=== PATIENT | male | born 1970 | race African-American/Black ===

== ENCOUNTER → 2018-07-29 | Outpatient (CLI) | payer OTHER ==
--- NOTE | 2018-07-31 09:06 | US ---
EXAMINATION TYPE: US kidneys/renal and bladder DATE OF EXAM: 07/29/2018 COMPARISON: NONE CLINICAL HISTORY: 48-year-old male N29.9 Known renal disease. Elevated creatinine. TECHNIQUE: Multiple sonographic images of the kidneys and bladder are obtained. FINDINGS: EXAM MEASUREMENTS: Right Kidney: 12.8 x 4.3 x 5.0 cm Left Kidney: 11.9 x 5.6 x 5.4 cm No hydronephrosis on either side. Right Kidney: cortical cyst upper/medial measures 1.5 x 1.3 x 1.7 cm Left Kidney: tiny exophytic cyst measures 0.6 x 0.6 x 0.6 cm. Bladder: wnl Bilateral Jets seen: not seen in 3 minutes of scan time Incidental note is made of prominent prostate measuring 4.4 cm wide. IMPRESSION: 1. Neither ureteral jet is visualized. This may reflect acute kidney injury. 2. No hydronephrosis.
== END | disposition home or self-care (01) ==
LOC: RADUSWWP 16:08
PROVIDERS: ATTEND Family Medicine
DX: N18.2 Chronic kidney disease, stage 2 (mild) (principal)
CPT/HCPCS: 76770

== ENCOUNTER 2021-03-03 21:43 | Emergency (ER) | payer OTHER ==
[2021-03-03] MEDS ORDERED: SODIUM CHLORIDE 0.9% 1,000 ML IV STA ×2 (23:53)
[2021-03-03] MEDS ORDERED: KETOROLAC 15 MG/ML 1 ML VIAL IVP STA (23:53)
[2021-03-03] MEDS ORDERED: ALBUTEROL HFA INHALER INHALATION STA (23:53)
[2021-03-03] MEDS ORDERED: SODIUM CHLORIDE 0.9% 500 ML 500 ML IV STA (23:53)
[2021-03-03] MEDS ORDERED: DEXAMETHASONE SOD PHOSPHATE 10 MG/ML 1 ML VIAL IV STA (23:53)
[2021-03-03] MEDS ORDERED: ACETAMINOPHEN TAB 500 MG TAB PO STA (23:53)
--- NOTE | 2021-03-03 23:55 | ED ---
Fever HPI - General Chief Complaint: Fever Stated Complaint: Covid+, PAUL Time Seen by Provider: 03/03/21 23:47 Source: patient, RN notes reviewed, old records reviewed Mode of arrival: ambulatory Limitations: no limitations - History of Present Illness Initial Comments: This is a 50-year-old male DF for evaluation patient does have some asthma coming in for shortness of breath severe. No fever with no nausea vomiting or diarrhea. Patient is having trouble catching his breath especially with activity. Patient does have positive coronavirus exposure with sick contacts -: hour(s) Temperature Source: subjective Context: sick contacts Associated Symptoms: chills, cough, chest pain, shortness of breath Treatments Prior to Arrival: none - Related Data Allergies Allergy/AdvReac Type Severity Reaction Status Date / Time No Known Allergies Allergy Verified 03/03/21 22:35 Review of Systems ROS Statement: Those systems with pertinent positive or pertinent negative responses have been documented in the HPI. ROS Other: All systems not noted in ROS Statement are negative. Past Medical History Past Medical History: Hypertension History of Any Multi-Drug Resistant Organisms: None Reported Past Surgical History: No Surgical Hx Reported Past Psychological History: No Psychological Hx Reported Smoking Status: Never smoker Past Alcohol Use History: None Reported Past Drug Use History: None Reported General Exam Limitations: no limitations General appearance: alert, in no apparent distress Head exam: Present: atraumatic, normocephalic, normal inspection Eye exam: Present: normal appearance, PERRL, EOMI. Absent: scleral icterus, conjunctival injection, periorbital swelling ENT exam: Present: normal exam, mucous membranes moist Neck exam: Present: normal inspection. Absent: tenderness, meningismus, lymphadenopathy Respiratory exam: Present: wheezes, accessory muscle use, decreased breath sounds, prolonged expiratory. Absent: respiratory distress, rales, rhonchi, stridor Cardiovascular Exam: Present: regular rate, normal rhythm, normal heart sounds. Absent: systolic murmur, diastolic murmur, rubs, gallop, clicks GI/Abdominal exam: Present: soft, normal bowel sounds. Absent: distended, tenderness, guarding, rebound, rigid Extremities exam: Present: normal inspection, full ROM, normal capillary refill. Absent: tenderness, pedal edema, joint swelling, calf tenderness Back exam: Present: normal inspection Neurological exam: Present: alert, oriented X3, CN II-XII intact Psychiatric exam: Present: normal affect, normal mood Skin exam: Present: warm, dry, intact, normal color. Absent: rash Course Vital Signs 03/03/21 03/04/21 03/04/21 22:36 05:21 07:44 Temperature 100.3 F H 99.2 F Pulse Rate 77 59 L 71 Respiratory 18 20 18 Rate Blood Pressure 132/86 126/81 112/65 O2 Sat by Pulse 95 96 92 L Oximetry - Reevaluation(s) Reevaluation #1: Medical record is reviewed Patient symptoms are significantly improved Patient informed results and questions have been answered Medical Decision Making - Medical Decision Making 13 male with known coronavirus. Patient feels good for discharge home, patient can be discharged home with coronavirus instructions return of pulse ox diminishes - Lab Data Result diagrams: 03/04/21 05:19 03/04/21 05:19 Lab Results 03/04/21 03/04/21 03/04/21 Range/Units 05:19 05:19 05:19 WBC 7.4 (3.8-10.6) k/uL RBC 6.09 H (4.30-5.90) m/uL Hgb 17.1 (13.0-17.5) gm/dL Hct 49.5 (39.0-53.0) % MCV 81.2 (80.0-100.0) fL MCH 28.1 (25.0-35.0) pg MCHC 34.6 (31.0-37.0) g/dL RDW 13.3 (11.5-15.5) % Plt Count 323 (150-450) k/uL MPV 6.5 Neutrophils % 78 % Lymphocytes % 15 % Monocytes % 4 % Eosinophils % 1 % Basophils % 1 % Neutrophils # 5.8 (1.3-7.7) k/uL Lymphocytes # 1.1 (1.0-4.8) k/uL Monocytes # 0.3 (0-1.0) k/uL Eosinophils # 0.1 (0-0.7) k/uL Basophils # 0.1 (0-0.2) k/uL PT 10.8 (9.0-12.0) sec INR 1.0 (<1.2) APTT 22.5 (22.0-30.0) sec Sodium 134 L (137-145) mmol/L Potassium 3.6 (3.5-5.1) mmol/L Chloride 91 L (98-107) mmol/L Carbon Dioxide 32 H (22-30) mmol/L Anion Gap 11 mmol/L BUN 29 H (9-20) mg/dL Creatinine 1.38 H (0.66-1.25) mg/dL Est GFR (CKD-EPI)AfAm 69 (>60 ml/min/1.73 sqM) Est GFR (CKD-EPI)NonAf 59 (>60 ml/min/1.73 sqM) Glucose 96 (74-99) mg/dL Plasma Lactic Acid Weston (0.7-2.0) mmol/L Calcium 9.1 (8.4-10.2) mg/dL Magnesium 2.3 (1.6-2.3) mg/dL Total Bilirubin 0.7 (0.2-1.3) mg/dL AST 47 (17-59) U/L ALT 21 (4-49) U/L Alkaline Phosphatase 61 (38-126) U/L Lactate Dehydrogenase 753 H (313-618) U/L C-Reactive Protein 41.7 H (<10.0) mg/L Total Protein 8.0 (6.3-8.2) g/dL Albumin 4.3 (3.5-5.0) g/dL 03/04/21 Range/Units 05:19 WBC (3.8-10.6) k/uL RBC (4.30-5.90) m/uL Hgb (13.0-17.5) gm/dL Hct (39.0-53.0) % MCV (80.0-100.0) fL MCH (25.0-35.0) pg MCHC (31.0-37.0) g/dL RDW (11.5-15.5) % Plt Count (150-450) k/uL MPV Neutrophils % % Lymphocytes % % Monocytes % % Eosinophils % % Basophils % % Neutrophils # (1.3-7.7) k/uL Lymphocytes # (1.0-4.8) k/uL Monocytes # (0-1.0) k/uL Eosinophils # (0-0.7) k/uL Basophils # (0-0.2) k/uL PT (9.0-12.0) sec INR (<1.2) APTT (22.0-30.0) sec Sodium (137-145) mmol/L Potassium (3.5-5.1) mmol/L Chloride (98-107) mmol/L Carbon Dioxide (22-30) mmol/L Anion Gap mmol/L BUN (9-20) mg/dL Creatinine (0.66-1.25) mg/dL Est GFR (CKD-EPI)AfAm (>60 ml/min/1.73 sqM) Est GFR (CKD-EPI)NonAf (>60 ml/min/1.73 sqM) Glucose (74-99) mg/dL Plasma Lactic Acid Weston 1.8 (0.7-2.0) mmol/L Calcium (8.4-10.2) mg/dL Magnesium (1.6-2.3) mg/dL Total Bilirubin (0.2-1.3) mg/dL AST (17-59) U/L ALT (4-49) U/L Alkaline Phosphatase (38-126) U/L Lactate Dehydrogenase (313-618) U/L C-Reactive Protein (<10.0) mg/L Total Protein (6.3-8.2) g/dL Albumin (3.5-5.0) g/dL - EKG Data -: EKG Interpreted by Me (EKG is sinus rhythm 71 SD 184 QRS 86 QTc 410) - Radiology Data Radiology results: report reviewed (Chest x-ray shows bilateral pneumonia), im age reviewed Disposition Clinical Impression: Coronavirus infection, Pneumonia due to COVID-19 virus Disposition: HOME SELF-CARE Condition: Good Instructions (If sedation given, give patient instructions): Coronavirus Disease 2019 (COVID-19), Fever in Adults (ED) Is patient prescribed a controlled substance at d/c from ED?: No Referrals: Rojas Allen MD [Primary Care Provider] - 1-2 days
--- NOTE | 2021-03-04 00:40 | XR ---
EXAM: XR Chest, 1 View CLINICAL HISTORY: ITS. REASON XR Reason: Suspected COVID-19 pneumonia TECHNIQUE: Frontal view of the chest. COMPARISON: No relevant prior studies available. FINDINGS: Lungs: Patchy bilateral airspace infiltrates. Suspect multilobar pneumonia, with particular concern for coronavirus infection. Pleural space: Unremarkable. No pneumothorax. Heart: Unremarkable. No cardiomegaly. Mediastinum: Unremarkable. Bones/joints: Mild degenerative changes. IMPRESSION: Patchy bilateral airspace infiltrates. Suspect multilobar pneumonia, with particular concern for coronavirus infection.
[2021-03-04 05:38] LABS: Basophils # (A) 0.1 k/uL (0-0.2); Basophils % (A) 1 %; Eosinophils # (A) 0.1 k/uL (0-0.7); Eosinophils % (A) 1 %; HCT 49.5 % (39.0-53.0); HGB 17.1 gm/dL (13.0-17.5); Lymphocytes # (A) 1.1 k/uL (1.0-4.8); Lymphocytes % (A) 15 %; MCH 28.1 pg (25.0-35.0); MCHC 34.6 g/dL (31.0-37.0); MCV 81.2 fL (80.0-100.0); Mean Platelet Volume 6.5; Monocytes # (A) 0.3 k/uL (0-1.0); Monocytes % (A) 4 %; Neutrophils # (A) 5.8 k/uL (1.3-7.7); Neutrophils % (A) 78 %; Platelet Count 323 k/uL (150-450); RBC 6.09 m/uL (4.30-5.90); RDW 13.3 % (11.5-15.5); WBC 7.4 k/uL (3.8-10.6)
[2021-03-04 05:48] LABS: Albumin 4.3 g/dL (3.5-5.0); C Reactive Protein 41.7 mg/L (<10.0); Calcium 9.1 mg/dL (8.4-10.2); Magnesium 2.3 mg/dL (1.6-2.3); Potassium 3.6 mmol/L (3.5-5.1); Total Bilirubin 0.7 mg/dL (0.2-1.3)
[2021-03-04 06:15] LABS: Partial Thromboplastin Time 22.5 sec (22.0-30.0); Prothrombin Time 10.8 sec (9.0-12.0)
[2021-03-04 07:50] VITALS: BP 112/65; PULSE 71; RESP 18; TEMP 99.2
== END 2021-03-04 08:01 | disposition home or self-care (01) ==
LOC: EC 21:43
DX: J12.82 Pneumonia due to coronavirus disease 2019 (principal); I10 Essential (primary) hypertension
CPT/HCPCS: 36415; 71045; 80053; 83605; 83615; 83735; 85025; 85610; 85730; 86140; 93005; 94640; 99285

== ENCOUNTER 2021-03-06 18:49 | Inpatient (IN) | payer OTHER ==
[2021-03-06 19:31] LABS: Basophils # (A) 0.1 k/uL (0-0.2); Basophils % (A) 1 %; Eosinophils # (A) 0.1 k/uL (0-0.7); Eosinophils % (A) 2 %; HCT 47.2 % (39.0-53.0); HGB 16.2 gm/dL (13.0-17.5); Lymphocytes # (A) 0.7 k/uL (1.0-4.8); Lymphocytes % (A) 14 %; MCH 27.6 pg (25.0-35.0); MCHC 34.2 g/dL (31.0-37.0); MCV 80.7 fL (80.0-100.0); Mean Platelet Volume 6.8; Monocytes # (A) 0.3 k/uL (0-1.0); Monocytes % (A) 5 %; Neutrophils # (A) 3.7 k/uL (1.3-7.7); Neutrophils % (A) 77 %; Platelet Count 386 k/uL (150-450); RBC 5.85 m/uL (4.30-5.90); RDW 13.4 % (11.5-15.5); WBC 4.8 k/uL (3.8-10.6)
[2021-03-06 19:44] LABS: D-Dimer 0.39 mg/L FEU (<0.60); Partial Thromboplastin Time 26.3 sec (22.0-30.0); Prothrombin Time 10.4 sec (9.0-12.0)
[2021-03-06 19:50] LABS: Albumin 4.2 g/dL (3.5-5.0); C Reactive Protein 83.8 mg/L (<10.0); Calcium 8.8 mg/dL (8.4-10.2); Magnesium 2.6 mg/dL (1.6-2.3); Potassium 3.8 mmol/L (3.5-5.1); Total Bilirubin 0.9 mg/dL (0.2-1.3); Total Protein 7.9 g/dL (6.3-8.2)
--- NOTE | 2021-03-06 20:10 | XR ---
EXAMINATION TYPE: XR chest 1V portable DATE OF EXAM: 03/06/2021 COMPARISON: 03/04/2021. HISTORY: Cough and shortness of breath. TECHNIQUE: Single frontal view of the chest is obtained. FINDINGS: There is increased moderate opacities in the right midlung and left lung base. No pleural effusion, or pneumothorax seen. The cardiac silhouette size is within normal limits. The osseous s tructures are intact. IMPRESSION: Worsening bilateral infiltrates.
--- NOTE | 2021-03-06 20:52 | ED ---
SOB HPI - General Chief Complaint: Shortness of Breath Stated Complaint: low o2/cough/sob Time Seen by Provider: 03/06/21 18:55 Source: patient, family Mode of arrival: wheelchair - History of Present Illness Initial Comments: Patient is a 50-year-old male with past history of hypertension presents emergency room with reported shortness of breath. Patient was seen in the [facility] en[facility] room 2 days ago for similar complaint. He was diagnosed with Coban. He did not receive any treatment was discharged home. States that over the past 2 days he has had worsening shortness of breath and cough. Denies any fevers. No history of previous cardiac or lung disease. Patient does arrive hypoxic saturating 85% on room air. He denies chest pain. No history of DVT or PE. No other alleviating, precipitating or modifying factors - Related Data Home Medications Medication Instructions Recorded Confirmed Budesonide/Formoterol Fumarate 2 puff INHALATION RT-BID 03/06/21 03/06/21 [Symbicort 160-4.5 Mcg Inhaler] amLODIPine [Norvasc] 5 mg PO DAILY 03/06/21 03/06/21 atenoloL [Atenolol] 25 mg PO DAILY 03/06/21 03/06/21 hydroCHLOROthiazide 50 mg PO DAILY 03/06/21 03/06/21 methylPREDNISolone Dose Pack See Taper PO DIRECTED 03/06/21 03/06/21 [Medrol Dose Pack] Allergies Allergy/AdvReac Type Severity Reaction Status Date / Time No Known Allergies Allergy Verified 03/06/21 21:26 Review of Systems ROS Statement: Those systems with pertinent positive or pertinent negative responses have been documented in the HPI. ROS Other: All systems not noted in ROS Statement are negative. Past Medical History Past Medical History: Hypertension History of Any Multi-Drug Resistant Organisms: None Reported Past Surgical History: No Surgical Hx Reported Past Psychological History: No Psychological Hx Reported Smoking Status: Never smoker Past Alcohol Use History: None Reported Past Drug Use History: None Reported - Past Family History Father Family Medical History: Renal Disease Mother Family Medical History: CVA/TIA, Diabetes Mellitus Additional Family Medical History / Comment(s): CVAs General Exam General appearance: alert, in no apparent distress Head exam: Present: atraumatic, normocephalic, normal inspection Eye exam: Present: normal appearance, PERRL, EOMI. Absent: scleral icterus, conjunctival injection, periorbital swelling ENT exam: Present: normal exam, mucous membranes moist Neck exam: Present: normal inspection. Absent: tenderness, meningismus, lymphadenopathy Respiratory exam: Present: normal lung sounds bilaterally. Absent: respiratory distress, wheezes, rales, rhonchi, stridor Cardiovascular Exam: Present: regular rate, normal rhythm, normal heart sounds. Absent: systolic murmur, diastolic murmur, rubs, gallop, clicks GI/Abdominal exam: Present: soft, normal bowel sounds. Absent: distended, tenderness, guarding, rebound, rigid Extremities exam: Present: normal inspection, full ROM, normal capillary refill. Absent: tenderness, pedal edema, joint swelling, calf tenderness Back exam: Present: normal inspection Neurological exam: Present: alert, oriented X3, CN II-XII intact Psychiatric exam: Present: normal affect, normal mood Skin exam: Present: warm, dry, intact, normal color. Absent: rash Course Vital Signs 03/06/21 03/06/21 03/06/21 18:52 19:26 20:24 Temperature 99.2 F Pulse Rate 83 78 Respiratory 24 18 18 Rate Blood Pressure 126/82 118/84 O2 Sat by Pulse 85 L 99 Oximetry 03/06/21 03/06/21 03/07/21 22:10 23:34 01:20 Temperature 100.8 F H 98.7 F Pulse Rate 79 74 Respiratory 19 18 18 Rate Blood Pressure 134/89 112/70 O2 Sat by Pulse 99 99 96 Oximetry 03/07/21 03/07/21 03/07/21 06:00 08:20 08:23 Temperature 97.5 F L 97.8 F Pulse Rate 64 70 Respiratory 18 18 Rate Blood Pressure 124/90 126/79 O2 Sat by Pulse 96 93 L Oximetry 03/07/21 11:04 Temperature 98 F Pulse Rate 68 Respiratory 18 Rate Blood Pressure 126/82 O2 Sat by Pulse 93 L Oximetry Medical Decision Making - Medical Decision Making Upon arrival patient placed in room 5. He is placed on 3 L of supplemental oxygen due to his hypoxia. Laboratory studies are conducted and a chest x-rays performed. Patient does have worsening infiltrates on chest x-ray. He continues to maintain saturations of 94% on 3 L. Because of his hypoxia did recommend admission for which patient did agree to. Discussed the case with Dr. Martinez who agreed to admit the patient. I did start him on Decadron. Patient agreed to the treatment plan and he is currently awaiting a bed on the floor - Lab Data Result diagrams: 03/07/21 04:20 03/07/21 04:20 Lab Results 03/06/21 03/06/21 03/06/21 Range/Units 19:15 19:15 19:15 WBC 4.8 (3.8-10.6) k/uL RBC 5.85 (4.30-5.90) m/uL Hgb 16.2 (13.0-17.5) gm/dL Hct 47.2 (39.0-53.0) % MCV 80.7 (80.0-100.0) fL MCH 27.6 (25.0-35.0) pg MCHC 34.2 (31.0-37.0) g/dL RDW 13.4 (11.5-15.5) % Plt Count 386 (150-450) k/uL MPV 6.8 Neutrophils % 77 % Lymphocytes % 14 % Monocytes % 5 % Eosinophils % 2 % Basophils % 1 % Neutrophils # 3.7 (1.3-7.7) k/uL Lymphocytes # 0.7 L (1.0-4.8) k/uL Monocytes # 0.3 (0-1.0) k/uL Eosinophils # 0.1 (0-0.7) k/uL Basophils # 0.1 (0-0.2) k/uL PT 10.4 (9.0-12.0) sec INR 1.0 (<1.2) APTT 26.3 (22.0-30.0) sec D-Dimer 0.39 (<0.60) mg/L FEU Sodium 134 L (137-145) mmol/L Potassium 3.8 (3.5-5.1) mmol/L Chloride 92 L (98-107) mmol/L Carbon Dioxide 30 (22-30) mmol/L Anion Gap 12 mmol/L BUN 25 H (9-20) mg/dL Creatinine 1.30 H (0.66-1.25) mg/dL Est GFR (CKD-EPI)AfAm 74 (>60 ml/min/1.73 sqM) Est GFR (CKD-EPI)NonAf 64 (>60 ml/min/1.73 sqM) Glucose 121 H (74-99) mg/dL Plasma Lactic Acid Weston (0.7-2.0) mmol/L Calcium 8.8 (8.4-10.2) mg/dL Magnesium 2.6 H (1.6-2.3) mg/dL Total Bilirubin 0.9 (0.2-1.3) mg/dL AST 55 (17-59) U/L ALT 29 (4-49) U/L Alkaline Phosphatase 67 (38-126) U/L Lactate Dehydrogenase 1041 H (313-618) U/L C-Reactive Protein 83.8 H (<10.0) mg/L Total Protein 7.9 (6.3-8.2) g/dL Albumin 4.2 (3.5-5.0) g/dL Procalcitonin (0.02-0.09) ng/mL 03/06/21 03/06/21 Range/Units 19:15 19:15 WBC (3.8-10.6) k/uL RBC (4.30-5.90) m/uL Hgb (13.0-17.5) gm/dL Hct (39.0-53.0) % MCV (80.0-100.0) fL MCH (25.0-35.0) pg MCHC (31.0-37.0) g/dL RDW (11.5-15.5) % Plt Count (150-450) k/uL MPV Neutrophils % % Lymphocytes % % Monocytes % % Eosinophils % % Basophils % % Neutrophils # (1.3-7.7) k/uL Lymphocytes # (1.0-4.8) k/uL Monocytes # (0-1.0) k/uL Eosinophils # (0-0.7) k/uL Basophils # (0-0.2) k/uL PT (9.0-12.0) sec INR (<1.2) APTT (22.0-30.0) sec D-Dimer (<0.60) mg/L FEU Sodium (137-145) mmol/L Potassium (3.5-5.1) mmol/L Chloride (98-107) mmol/L Carbon Dioxide (22-30) mmol/L Anion Gap mmol/L BUN (9-20) mg/dL Creatinine (0.66-1.25) mg/dL Est GFR (CKD-EPI)AfAm (>60 ml/min/1.73 sqM) Est GFR (CKD-EPI)NonAf (>60 ml/min/1.73 sqM) Glucose (74-99) mg/dL Plasma Lactic Acid Weston 1.6 (0.7-2.0) mmol/L Calcium (8.4-10.2) mg/dL Magnesium (1.6-2.3) mg/dL Total Bilirubin (0.2-1.3) mg/dL AST (17-59) U/L ALT (4-49) U/L Alkaline Phosphatase (38-126) U/L Lactate Dehydrogenase (313-618) U/L C-Reactive Protein (<10.0) mg/L Total Protein (6.3-8.2) g/dL Albumin (3.5-5.0) g/dL Procalcitonin 0.15 H (0.02-0.09) ng/mL - EKG Data EKG Comments: EKG demonstrates normal sinus rhythm with a ventricular rate of 78. DE interval 162. QRS 76. QTC 426. No acute ST segment elevations Disposition Clinical Impression: Coronavirus infection, Hypoxia Disposition: ADMITTED IP TO THIS HOSP Condition: Stable Is patient prescribed a controlled substance at d/c from ED?: No Decision to Admit Reason: Admit from EC Decision Date: 03/06/21 Decision Time: 20:52
[2021-03-06] MEDS ORDERED: NALOXONE 0.4 MG/ML 1 ML VIAL IV PRN (20:53)
[2021-03-06] MEDS ORDERED: ACETAMINOPHEN TAB 325 MG TAB PO PRN (20:53)
[2021-03-06] MEDS: DEXAMETHASONE SOD PHOSPHATE 10 MG/ML 1 ML VIAL IV SCH (23:32)
[2021-03-07 04:39] LABS: Basophils % (A) 0 %; Eosinophils # (A) 0.1 k/uL (0-0.7); Eosinophils % (A) 1 %; HCT 47.8 % (39.0-53.0); HGB 15.8 gm/dL (13.0-17.5); Lymphocytes # (A) 0.6 k/uL (1.0-4.8); Lymphocytes % (A) 10 %; MCHC 33.1 g/dL (31.0-37.0); MCV 81.5 fL (80.0-100.0); Mean Platelet Volume 6.7; Monocytes # (A) 0.2 k/uL (0-1.0); Monocytes % (A) 3 %; Neutrophils # (A) 5.3 k/uL (1.3-7.7); Neutrophils % (A) 85 %; Platelet Count 378 k/uL (150-450); RBC 5.86 m/uL (4.30-5.90); RDW 13.7 % (11.5-15.5); WBC 6.3 k/uL (3.8-10.6)
[2021-03-07 05:34] LABS: Calcium 8.8 mg/dL (8.4-10.2)
[2021-03-07] MEDS: DEXAMETHASONE SOD PHOSPHATE 10 MG/ML 1 ML VIAL IV SCH (08:19)
[2021-03-07] MEDS: atenoloL 25 MG TAB PO SCH (08:20)
[2021-03-07] MEDS: amLODIPine 5 MG TAB PO SCH (08:20)
[2021-03-07] MEDS: CHOLECALCIFEROL 25 MCG (1000 IU) TABLET PO SCH (10:58)
[2021-03-07] MEDS: ASCORBIC ACID 500 MG TAB PO SCH ×2 (10:58→19:48)
[2021-03-07] MEDS: ZINC SULFATE 220 MG CAP PO SCH (10:58)
[2021-03-07] MEDS: ENOXAPARIN 40 MG/0.4 ML SYRINGE SQ SCH (10:58)
[2021-03-07] MEDS: SYMBICORT 160-4.5 MCG INHALER INHALATION SCH ×2 (14:10→22:37)
[2021-03-07 14:31] VITALS: BMI 34.2
--- NOTE | 2021-03-07 14:32 | P.CNPUL ---
History of Present Illness Consult date: 03/07/21 Reason for consult: dyspnea, cough, hypoxemia, abnormal CXR/CT Chief complaint: Dyspnea, hypoxia, COVID 19 pneumonia History of present illness: 50-year-old -N[place]alese male patient with past nuchal history of hyper tension, and hypertensive nephrosclerosis and CTD stage II at baseline, lifetime nonsmoker who presented to the emergency department on 03/06/2021 with symptoms of worsening shortness of breath and coughing. His symptoms started over 10 days ago, and began with loss of taste, patient states the food was tasting funny, gradually he started coughing, and developing worsening shortness of breath. He had outpatient test for over 19 at the [facility] 8 days ago on . He was in the emergency department on 03/03/2021 complaining of trouble catching his breath especially with activity. Patient does have positive coronavirus exposure with sick contacts. Does report some chest tightness. Patient did not require supplemental oxygen at that time, his chest x-ray was showing bilateral pneumonia. Patient was cleared for discharge home where his breathing continued to worsen she returned for reevaluation. His O2 saturations are now down to 85% and patient was placed on supplemental oxygen, still has the cough, and chest tightness, his chest x-ray showed worsening bilateral infiltrates. EKG showed normal sinus rhythm with T-wave inversion in the lead 3 and aVF. Lab work showed the lymphopenia with lymphocyte count of 0.7, the rest of the CBC was within normal limits, d-dimer was 0.39, sodium was 134, potassium is 3.8, chloride is 92, BUN is 25, creatinine is 1.3, LDH is 1041, CRP is 83.8, pro calcitonin level is negative at 0.15, patient was started on Decadron, prophylactic anticoagulation form of Lovenox, and vitamins. He is outside the window for Remdesivir Review of Systems All systems: negative Constitutional: Reports malaise, Reports poor appetite, Denies chills, Denies fever Eyes: denies blurred vision, denies pain Ears, nose, mouth and throat: Denies headache, Denies sore throat Cardiovascular: Denies chest pain, Denies shortness of breath Respiratory: Reports dyspnea, Denies cough Gastrointestinal: Reports loss of appetite, Denies abdominal pain, Denies diarrhea, Denies nausea, Denies vomiting Musculoskeletal: Denies myalgias Integumentary: Denies pruritus, Denies rash Neurological: Denies numbness, Denies weakness Psychiatric: Denies anxiety, Denies depression Endocrine: Denies fatigue, Denies weight change Past Medical History Past Medical History: Hypertension, Renal Disease Additional Past Medical History / Comment(s): Pt tested covid + 03/01/21 at [facility] in [place]. History of Any Multi-Drug Resistant Organisms: None Reported Past Surgical History: No Surgical Hx Reported Past Anesthesia/Blood Transfusion Reactions: Unable to Obtain Additional Past Anesthesia/Blood Transfusion Reaction / Comment(s): Pt has never had surgery Smoking Status: Never smoker - Past Family History Father Family Medical History: Renal Disease Mother Family Medical History: CVA/TIA, Diabetes Mellitus Additional Family Medical History / Comment(s): CVAs Medications and Allergies Home Medications Medication Instructions Recorded Confirmed Type Budesonide/Formoterol Fumarate 2 puff INHALATION RT-BID 03/06/21 03/06/21 History [Symbicort 160-4.5 Mcg Inhaler] amLODIPine [Norvasc] 5 mg PO DAILY 03/06/21 03/06/21 History atenoloL [Atenolol] 25 mg PO DAILY 03/06/21 03/06/21 History hydroCHLOROthiazide 50 mg PO DAILY 03/06/21 03/06/21 History methylPREDNISolone Dose Pack See Taper PO DIRECTED 03/06/21 03/06/21 History [Medrol Dose Pack] Allergies Allergy/AdvReac Type Severity Reaction Status Date / Time No Known Allergies Allergy Verified 03/06/21 21:26 Physical Exam Vitals: Vital Signs Temp Pulse Pulse Resp BP BP Pulse Ox 03/07/21 13:48 97.8 F 66 16 111/81 90 L 03/07/21 11:04 98 F 68 18 126/82 93 L 03/07/21 08:23 97.8 F 03/07/21 08:20 70 18 126/79 93 L 03/07/21 06:00 97.5 F L 64 18 124/90 96 03/07/21 01:20 98.7 F 74 18 112/70 96 03/06/21 23:34 100.8 F H 79 18 134/89 99 03/06/21 22:10 19 99 03/06/21 20:24 78 18 118/84 99 03/06/21 19:26 18 03/06/21 18:52 99.2 F 83 24 126/82 85 L Intake and Output 03/06/21 03/07/21 03/07/21 22:59 06:59 14:59 Other: Weight 99.2 kg 99.2 kg GENERAL EXAM: Alert, very pleasant, 50-year-old -N[place]alese male, on 3 L of oxygen pulse ox of 93% omfortable in no apparent distress. HEAD: Normocephalic/atraumatic. EYES: Normal reaction of pupils, equal size. Conjunctiva pink, sclera white. NOSE: Clear with pink turbinates. THROAT: No erythema or exudates. NECK: No masses, no JVD, no thyroid enlargement, no adenopathy. CHEST: No chest wall deformity. Symmetrical expansion. LUNGS: Equal air entry with bilateral crackles CVS: Regular rate and rhythm, normal S1 and S2, no gallops, no murmurs, no rubs ABDOMEN: Soft, nontender. No hepatosplenomegaly, normal bowel sounds, no guar ding or rigidity. EXTREMITIES: No clubbing, no edema, no cyanosis, 2+ pulses and upper and lower extremities. MUSCULOSKELETAL: Muscle strength and tone normal. SPINE: No scoliosis or deformity SKIN: No rashes CENTRAL NERVOUS SYSTEM: Alert and oriented -3. No focal deficits, tone is normal in all 4 extremities. PSYCHIATRIC: Alert and oriented -3. Appropriate affect. Intact judgment and insight. Results - Laboratory Findings CBC and BMP: 03/07/21 04:20 03/07/21 04:20 PT/INR, D-dimer PT 10.4 sec (9.0-12.0) 03/06/21 19:15 INR 1.0 (<1.2) 03/06/21 19:15 D-Dimer 0.39 mg/L FEU (<0.60) 03/06/21 19:15 Abnormal lab findings: Abnormal Labs 03/06/21 03/06/21 03/06/21 19:15 19:15 19:15 Lymphocytes # 0.7 L Sodium 134 L Chloride 92 L Carbon Dioxide BUN 25 H Creatinine 1.30 H Glucose 121 H Magnesium 2.6 H Lactate Dehydrogenase 1041 H C-Reactive Protein 83.8 H Procalcitonin 0.15 H Coronavirus (PCR) 03/07/21 03/07/21 03/07/21 04:20 04:20 11:00 Lymphocytes # 0.6 L Sodium 135 L Chloride 94 L Carbon Dioxide 32 H BUN 24 H Creatinine Glucose 139 H Magnesium Lactate Dehydrogenase C-Reactive Protein Procalcitonin Coronavirus (PCR) Detected A - Diagnostic Findings Chest x-ray: report reviewed, image reviewed Assessment and Plan Plan: Assessment: #1. Acute hypoxic respiratory failure related to acute COVID 19 pneumonia with onset of symptoms over 10 days ago, outside of the window for Remdesivir #2. Dyspnea, hypoxia, cough, loss of appetite, loss of taste related to the above, #3. History of hypertension #4. Hypertensive nephrosclerosis and CKG stage II at baseline #5. Acute kidney injury related to ATN, improved with IV hydration #6. Mild hyponatremia related to poor oral intake and hypovolemia improved with IV hydration Plan: Continue standard medical treatment, with IV steroids, current dose Lovenox 40 mg daily, supportive treatment, will add vitamins, we'll continue to monitor the patient for symptoms of worsening dyspnea or hypoxia. Continue IV fluids, she is out of the side window for Remdesivir. We'll continue to follow and make further recommendations according to his clinical course I performed a history & physical examination of the patient and discussed their management with my nurse practitioner, Astrid Garcia. I reviewed the nurse practitioner's note and agree with the documented findings and plan of care. Lung sounds are positive for diminished breath sounds. The findings and the impression was discussed with the patient. I attest to the documentation by the nurse practitioner. Time with Patient: Greater than 30
--- NOTE | 2021-03-07 16:51 | HP ---
HISTORY AND PHYSICAL This is a 50-year-old white male who has been in the emergency room 2 or 3 times in the last week. He has history of hypertension, hypertensive chronic kidney disease, stage 2, nonsmoker. He came in with worsening shortness of breath and cough. He was positive for COVID. He failed outpatient treatment with Z-Fidencio, steroid pack, zinc, Symbicort, which he never picked up at the pharmacy, but apparently he was sent home and he came back with worsening breathing. He is now on 3 L of oxygen. CRP is 83. Procalcitonin is 0.15. Started on Decadron, Lovenox, vitamins. He probably needs some kind of treatment with remdesivir or Actemra. REVIEW OF SYSTEMS: Fourteen-point review of systems negative except for mentioned in HPI. Weakness, fatigue, shortness of breath. He has not lost taste or smell. PAST MEDICAL HISTORY: Hypertension, renal disease diagnosed on 03/01/2021 at [facility] in [place]. FAMILY HISTORY: Father with renal disease. Mother with CVA, TIA, diabetes mellitus. HOME MEDICINES: 1. Symbicort 160/4.5 two puffs b.i.d. 2. Norvasc 5 mg daily. 3. Atenolol 25 daily. 4. Hydrochlorothiazide 50 daily. ALLERGIES: NEGATIVE. PHYSICAL EXAMINATION: Temperature 97.8 up to 100.8, respiratory rate 16 to 18, pulse 60s to 80s, blood pressure 120s to 130s over 60s to 70s. Oxygen saturation: When he came in it was 85% and now it is 90% on 3 L. HEENT: Normocephalic, atraumatic. He looks weak, fatigued. CARDIOVASCULAR: S1, S2. LUNGS: Scattered rhonchi and wheeze. ABDOMEN: Soft, non-tender. No mass. EXTREMITIES: No cyanosis, clubbing, edema. MUSCULOSKELETAL: Range of motion fair. SKIN: No rash, excoriation, bruising. BUTT SAWYER: Cranial nerves appear to be intact. PSYCH: Fair mood and affect. ASSESSMENT: 1. COVID 19 pneumonia. 2. Acute hypoxemic respiratory failure secondary to COVID. 3. Hypertension. 4. Renal disease, stage 2. 5. Mild hyponatremia due to dehydration. IV steroids. Lovenox, zinc, vitamin C, vitamin D. Prognosis guarded. He will be here for a while. MMJORDYNL / IJN: [id number] /
--- NOTE | 2021-03-08 07:45 | CONS ---
CONSULTATION DATE OF SERVICE: 03/07/2021 REASON FOR CONSULTATION: COVID-19 infection. HISTORY OF PRESENT ILLNESS: The patient is a 50-year-old male with a past history significant for hypertension, hypertensive heart disease in this patient presenting to the ER at [facility] yesterday evening for evaluation of worsening shortness of breath or cough. Apparently the patient's symptoms have been going on from Wednesday, about 10 days ago, in this patient who did have initially loss of taste and smell and subsequently started having coughing, which has been moderate in intensity, mostly dry. Not bringing up any purulent sputum. Still having increasing shortness of breath. With these symptoms, the patient was initially seen at [facility] ER on 03/03/2021. At that point, the patient was diagnosed with COVID-19. Patient was not hypoxic at that time and patient was discharged home. The patient now presented back to the hospital with worsening shortness of breath. The patient has been complaining of a being unable to take a deep breath. The patient did have a cough which has been moderate in intensity, not bringing up any sputum. Some nausea but no vomiting. Decreased oral intake. No abdominal pain. No diarrhea. On presentation to hospital, the patient did have a low-grade fever of 100.8 degrees Fahrenheit. The patient was hypoxic with O2 sats of 85% on room air. He is currently 92% on 5 L nasal cannula. The patient did have a normal white count with lymphopenia. D-dimer was normal. Creatinine is 1.30. Liver enzymes are normal. LDH is 1041. CRP 3.9. Procalcitonin 0.25. Basurto PCR positive. The patient did have a chest x-ray with worsening bilateral infiltrates. The patient has been admitted to the hospital. Infectious Disease was consulted for further management of antibiotic therapy. REVIEW OF SYSTEMS: Positive points have been mentioned in HPI. Rest of systems are negative. PAST MEDICAL HISTORY: Hypertension, hypertensive heart disease. PAST SURGICAL HISTORY: No major surgery. SOCIAL HISTORY: Denies smoking, drinking or drug use. FAMILY HISTORY: Father with history of renal disease. Mother history of CVA and diabetes. ALLERGIES: No known drug allergies. MEDICATIONS: The patient is currently on Tylenol, Norvasc, vitamin C, Tenormin, Symbicort, vitamin D3, Decadron, Lovenox, Zofran. PHYSICAL EXAMINATION: VITAL SIGNS: Blood pressure 118/82 with a pulse of 67, temperature 99, he is 92% on 5 L nasal cannula. GENERAL DESCRIPTION: Patient is a middle-aged male lying in bed in no distress. No tachypnea or accessory muscles of respiration use. HEENT: Examination shows no pallor or scleral icterus. Oral mucous membrane is dry. NECK: Trachea central, no thyromegaly. LUNGS: Unlabored breathing, coarse breath sounds bilaterally. No wheeze. HEART: S1-S2, regular rate and rhythm. ABDOMEN: Soft, no tenderness. No guarding or rigidity. EXTREMITIES: No edema of the feet. SKIN: No rash or mass palpable. NEUROLOGICAL: Patient is awake, alert, oriented times three. Mood and affect normal. LABS: Hemoglobin is 13.2, white count 6.3, BUN of 24, creatinine 1.24. DIAGNOSTIC IMPRESSION: Patient admitted to the hospital with worsening bilateral interstitial pneumonia secondary to COVID-19 in this patient whose symptoms have been going on for more than 10 days. He is currently considered not to be in the therapeutic window for remdesivir. PLAN: 1. Dexamethasone, Lovenox, zinc and ascorbic acid. 2. Droplet isolation and respiratory support. 3. Will follow on his clinical condition and further adjust medication if needed. Thank you for this consultation. Will follow this patient along with you. MMODL / IJN: [id number] /
[2021-03-08] MEDS: SYMBICORT 160-4.5 MCG INHALER INHALATION SCH ×2 (08:15→20:58)
[2021-03-08] MEDS: CHOLECALCIFEROL 25 MCG (1000 IU) TABLET PO SCH (09:39)
[2021-03-08] MEDS: ASCORBIC ACID 500 MG TAB PO SCH ×2 (09:39→20:18)
[2021-03-08] MEDS: amLODIPine 5 MG TAB PO SCH (09:39)
[2021-03-08] MEDS: atenoloL 25 MG TAB PO SCH (09:39)
[2021-03-08] MEDS: DEXAMETHASONE SOD PHOSPHATE 10 MG/ML 1 ML VIAL IV SCH (09:40)
[2021-03-08] MEDS: ENOXAPARIN 40 MG/0.4 ML SYRINGE SQ SCH (09:40)
[2021-03-08] MEDS: ZINC SULFATE 220 MG CAP PO SCH (09:41)
--- NOTE | 2021-03-08 10:30 | P.PN ---
Subjective Progress Note Date: 03/08/21 Principal diagnosis: CoVID 19 pneumonia/pneumonitis 50-year-old -[place] Island[place] male patient with past nuchal history of hypertension, and hypertensive nephrosclerosis and CTD stage II at baseline, lifetime nonsmoker who presented to the emergency department on 03/06/2021 with symptoms of worsening shortness of breath and coughing. His symptoms started over 10 days ago, and began with loss of taste, patient states the food was tasting funny, gradually he started coughing, and developing worsening shortness of breath. He had outpatient test for over 19 at the [facility] 8 days ago on . He was in the emergency department on 03/03/2021 complaining of trouble catching his breath especially with activity. Patient does have positive coronavirus exposure with sick contacts. Does report some chest tightness. Patient did not require supplemental oxygen at that time, his chest x-ray was showing bilateral pneumonia. Patient was cleared for discharge home where his breathing continued to worsen she returned for reevaluation. His O2 saturations are now down to 85% and patient was placed on supplemental oxygen, still has the cough, and chest tightness, his chest x-ray showed worsening bilateral infiltrates. EKG showed normal sinus rhythm with T-wave inversion in the lead 3 and aVF. Lab work showed the lymphopenia with lymphocyte count of 0.7, the rest of the CBC was within normal limits, d-dimer was 0.39, sodium was 134, potassium is 3.8, chloride is 92, BUN is 25, creatinine is 1.3, LDH is 1041, CRP is 83.8, pro calcitonin level is negative at 0.15, patient was started on Decadron, prophylactic anticoagulation form of Lovenox, and vitamins. He is outside the window for Remdesivir The patient is seen today 03/08/2021 follow-up on the observation unit. He is currently sitting up in a chair at the bedside. Awake and alert in no acute distress. He is on 5 L high flow nasal cannula to maintain O2 saturation in the 90s. Breathing a bit easier today compared to yesterday. Afebrile. Hemodynamically stable. He remains on Symbicort, albuterol, iron supplements. Dexamethasone, Lovenox. Objective - Vital Signs Vital signs: Vital Signs Temp 97.6 F 03/08/21 08:00 Pulse 75 03/08/21 08:00 Resp 18 03/08/21 08:00 BP 124/71 03/08/21 08:00 Pulse Ox 94 L 03/08/21 08:00 Intake & Output 03/07/21 03/08/21 03/08/21 18:59 06:59 18:59 Weight 99.2 kg Other: # Voids 2 2 - Exam GENERAL EXAM: Alert, very pleasant, 50-year-old male, on 5 L of oxygen pulse ox of 94% comfortable in no apparent distress. HEAD: Normocephalic/atraumatic. EYES: Normal reaction of pupils, equal size. Conjunctiva pink, sclera white. NOSE: Clear with pink turbinates. THROAT: No erythema or exudates. NECK: No masses, no JVD, no thyroid enlargement, no adenopathy. CHEST: No chest wall deformity. Symmetrical expansion. LUNGS: Equal air entry with bilateral crackles CVS: Regular rate and rhythm, normal S1 and S2, no gallops, no murmurs, no rubs ABDOMEN: Soft, nontender. No hepatosplenomegaly, normal bowel sounds, no guar ding or rigidity. EXTREMITIES: No clubbing, no edema, no cyanosis, 2+ pulses and upper and lower extremities. MUSCULOSKELETAL: Muscle strength and tone normal. SPINE: No scoliosis or deformity SKIN: No rashes CENTRAL NERVOUS SYSTEM: No focal deficits, tone is normal in all 4 extremities. PSYCHIATRIC: Alert and oriented -3. Appropriate affect. Intact judgment and insight. - Labs CBC & Chem 7: 03/07/21 04:20 03/07/21 04:20 Labs: Abnormal Lab Results - Last 24 Hours (Table) 03/07/21 Range/Units 11:00 Coronavirus (PCR) Detected A (Not Detectd) Assessment and Plan Assessment: 1 Acute hypoxic respiratory failure related to acute COVID 19 pneumonia with onset of symptoms over 10 days ago, outside of the window for Remdesivir 2 Dyspnea, hypoxia, cough, loss of appetite, loss of taste related to the above, 3 History of hypertension 4 Hypertensive nephrosclerosis and CKG stage II at baseline 5 Acute kidney injury related to ATN, improved with IV hydration 6 Mild hyponatremia related to poor oral intake and hypovolemia improved with IV hydration Plan: The patient was seen and evaluated by Dr. Pedro Continue the current treatment plan Titrate down the FiO2 as tolerated We'll continue to follow I, the cosigning physician, performed a history & physical examination of the patient. Lungs sounds with crackles in the bilateral posterior bases. Maintaining good O2 saturations in the 90s on 5 L/m per nasal cannula. I discussed the assessment and plan of care with my nurse practitioner, Monica Triana. I attest to the above note as dictated by her.
[2021-03-08 10:39] LABS: Basophils # (A) 0.1 k/uL (0-0.2); Basophils % (A) 1 %; Eosinophils % (A) 0 %; HCT 47.3 % (39.0-53.0); HGB 15.7 gm/dL (13.0-17.5); Lymphocytes # (A) 0.9 k/uL (1.0-4.8); Lymphocytes % (A) 9 %; MCH 27.1 pg (25.0-35.0); MCHC 33.2 g/dL (31.0-37.0); MCV 81.5 fL (80.0-100.0); Mean Platelet Volume 6.9; Monocytes # (A) 0.4 k/uL (0-1.0); Monocytes % (A) 4 %; Neutrophils # (A) 8.5 k/uL (1.3-7.7); Neutrophils % (A) 85 %; Platelet Count 504 k/uL (150-450); RDW 13.6 % (11.5-15.5)
[2021-03-08 11:33] LABS: Albumin 3.6 g/dL (3.5-5.0); C Reactive Protein 46.5 mg/L (<10.0); Calcium 8.8 mg/dL (8.4-10.2); Total Bilirubin 0.7 mg/dL (0.2-1.3); Total Protein 7.1 g/dL (6.3-8.2)
--- NOTE | 2021-03-08 19:38 | PN ---
PROGRESS NOTE DATE OF SERVICE: 03/08/2021 REASON FOR FOLLOWUP: COVID-19 pneumonia. INTERVAL HISTORY: The patient is currently afebrile. He is breathing slightly about the same. Denies any worsening shortness of breath. Minimal cough, not bringing up any sputum. No nausea, no vomiting. No abdominal pain or diarrhea. PHYSICAL EXAMINATION: Blood pressure 124/78 with a pulse of 78, temperature 99.1. He is 93% on 5 L nasal cannula. General description is a middle-aged male lying in bed in no distress. Respiratory system: Unlabored breathing, decreased intensity in the breath sounds with no wheeze. HEART: S1, S2. Regular rate and rhythm. ABDOMEN: Soft, no tenderness. LABS: Hemoglobin is 15, white count 10.0, creatinine 1.28. LDH CRP is slightly decreased. DIAGNOSTIC IMPRESSION AND PLAN: Patient with acute COVID-19 infection, minimal improvement of his inflammatory markers. The patient is currently on Dexamethasone, Lovenox, zinc, ascorbic acid to continue along with incentive spirometry and monitor clinical course. MMODL / IJN: [id number] /
[2021-03-09] MEDS: ENOXAPARIN 40 MG/0.4 ML SYRINGE SQ SCH (08:03)
[2021-03-09] MEDS: CHOLECALCIFEROL 25 MCG (1000 IU) TABLET PO SCH (08:04)
[2021-03-09] MEDS: ZINC SULFATE 220 MG CAP PO SCH (08:04)
[2021-03-09] MEDS: ASCORBIC ACID 500 MG TAB PO SCH ×2 (08:04→20:21)
[2021-03-09] MEDS: atenoloL 25 MG TAB PO SCH (08:04)
[2021-03-09] MEDS: amLODIPine 5 MG TAB PO SCH (08:04)
[2021-03-09] MEDS: DEXAMETHASONE SOD PHOSPHATE 10 MG/ML 1 ML VIAL IV SCH (08:05)
[2021-03-09] MEDS: SYMBICORT 160-4.5 MCG INHALER INHALATION SCH ×2 (09:13→21:06)
--- NOTE | 2021-03-09 11:01 | PN ---
PROGRESS NOTE A 50-year-old male who is admitted with COVID-19 pneumonia. Remains on Lovenox , HydroDIURIL, Orazinc, Decadron, Symbicort inhaler, Tenormin, Norvasc, vitamin C, Tylenol. His oxygen level is still 96 on 5 L. Blood pressure is 120/70, respiratory 16 to 18, temp 98.6, pulse 65. Saw by boiler setter and Dr. Ashley. Continue dexamethasone, Lovenox, zinc and ascorbic acid. Prognosis guarded. I was hoping someone would give him dexamethasone even though he is out of a 5 day window as it has shown some source of improvement even after 10 days use when repeating it later on in the COVID-19 lifecycle. MMODL / IJN: [id number] /
--- NOTE | 2021-03-09 17:06 | P.PN ---
Subjective Progress Note Date: 03/09/21 Principal diagnosis: Dyspnea, cough, hypoxemia, abnormal chest x-ray 50-year-old -Slov[place] male patient with past nuchal history of hypertension, and hypertensive nephrosclerosis and CTD stage II at baseline, lifetime nonsmoker who presented to the emergency department on 03/06/2021 with symptoms of worsening shortness of breath and coughing. His symptoms started over 10 days ago, and began with loss of taste, patient states the food was tasting funny, gradually he started coughing, and developing worsening shortness of breath. He had outpatient test for over [facility] on . He was in the emergency department on 03/03/2021 complaining of trouble catching his breath especially with activity. Patient does have positive coronavirus exposure with sick contacts. Does report some chest tightness. Patient did not require supplemental oxygen at that time, his chest x-ray was showing bilateral pneumonia. Patient was cleared for discharge home where his breathing continued to worsen she returned for reevaluation. His O2 saturations are now down to 85% and patient was placed on supplemental oxygen, still has the cough, and chest tightness, his chest x-ray showed worsening bilateral infiltrates. EKG showed normal sinus rhythm with T-wave inversion in the lead 3 and aVF. Lab work showed the lymphopenia with lymphocyte count of 0.7, the rest of the CBC was within normal limits, d-dimer was 0.39, sodium was 134, potassium is 3.8, chloride is 92, BUN is 25, creatinine is 1.3, LDH is 1041, CRP is 83.8, pro calcitonin level is negative at 0.15, patient was started on Decadron, prophylactic anticoagulation form of Lovenox, and vitamins. He is outside the window for Remdesivir On 03/09/2021 patient seen in follow-up on medical floor, he is cefepime chair, he is on 4 L of oxygen pulse ox is between 90-96%, lung sounds are diminished, no wheezing, no crackles auscultated on today's exam, no complaint of chest pain, occasional cough. Patient continues on the Decadron 6 mg daily, prophylactic Lovenox, he is on Symbicort, vitamins. He was outside the window for Remdesivir. His inflammatory markers are improving, LDH is down to 855, CRP is 46.5, his pro calcitonin level was negative. No worsening dyspnea, nausea vo miting or diarrhea although his appetite remains poor. He does state however that he is usually not a big eater, he is vegetarian, and intermittent faster. Objective - Vital Signs Vital signs: Vital Signs Temp 98.4 F 03/09/21 13:59 Pulse 67 03/09/21 13:59 Resp 16 03/09/21 13:59 BP 127/79 03/09/21 13:59 Pulse Ox 90 L 03/09/21 13:59 Intake & Output 03/08/21 03/09/21 03/09/21 18:59 06:59 18:59 Intake Total 2049 Output Total 400 Balance 1649 Intake: Oral 2049 Output: Urine 400 Other: # Voids 2 3 - Exam GENERAL EXAM: Alert, very pleasant, 50-year-old -[place]ov[place] male, on 4 L of oxygen pulse ox of 90% omfortable in no apparent distress. HEAD: Normocephalic/atraumatic. EYES: Normal reaction of pupils, equal size. Conjunctiva pink, sclera white. NOSE: Clear with pink turbinates. THROAT: No erythema or exudates. NECK: No masses, no JVD, no thyroid enlargement, no adenopathy. CHEST: No chest wall deformity. Symmetrical expansion. LUNGS: Equal air entry with bilateral crackles CVS: Regular rate and rhythm, normal S1 and S2, no gallops, no murmurs, no rubs ABDOMEN: Soft, nontender. No hepatosplenomegaly, normal bowel sounds, no guarding or rigidity. EXTREMITIES: No clubbing, no edema, no cyanosis, 2+ pulses and upper and lower extremities. MUSCULOSKELETAL: Muscle strength and tone normal. SPINE: No scoliosis or deformity SKIN: No rashes CENTRAL NERVOUS SYSTEM: Alert and oriented -3. No focal deficits, tone is normal in all 4 extremities. PSYCHIATRIC: Alert and oriented -3. Appropriate affect. Intact judgment and insight. - Labs CBC & Chem 7: 03/08/21 09:59 03/08/21 09:59 Assessment and Plan Plan: Assessment: #1. Acute hypoxic respiratory failure related to acute COVID 19 pneumonia with onset of symptoms over 10 days ago, outside of the window for Remdesivir #2. Dyspnea, hypoxia, cough, loss of appetite, loss of taste related to the above, #3. History of hypertension #4. Hypertensive nephrosclerosis and CKG stage II at baseline #5. Acute kidney injury related to ATN, improved with IV hydration #6. Mild hyponatremia related to poor oral intake and hypovolemia improved with IV hydration Plan: Continue current medical treatment, continue Decadron, prophylactic Lovenox, no worsening dyspnea, wean FiO2 to maintain O2 saturation between 89-90% as long as the patient is asymptomatic, no worsening dyspnea, avoiding oral intake, we'll obtain follow-up chest x-ray and follow-up labs tomorrow, including inflammatory markers and d-dimer. I performed a history & physical examination of the patient and discussed their management with my nurse practitioner, Astrid Garcia. I reviewed the nurse practitioner's note and agree with the documented findings and plan of care. Lung sounds are positive for diminished breath sounds. The findings and the impression was discussed with the patient. I attest to the documentation by the nurse practitioner. Time with Patient: Less than 30
--- NOTE | 2021-03-09 20:48 | PN ---
PROGRESS NOTE DATE OF SERVICE: 03/09/2021 REASON FOR FOLLOWUP: COVID-19 infection. INTERVAL HISTORY: The patient is currently afebrile. The patient mentioned he is feeling better today. He is breathing comfortably. Still requiring 4 L cannula. Patient denies any chest pain. Did have occasional cough. No abdominal pain or diarrhea. PHYSICAL EXAMINATION: Blood pressure 125/79, pulse of 66, temperature 98.1. He is 93% on 4 L nasal cannula. General description is a middle-aged male lying in bed in no distress. Respiratory system: Unlabored breathing with decreased intensity of breath sounds. No wheeze or crackle. Heart S1, S2. Regular rate and rhythm. Abdomen soft, no tenderness. LAB: Hemoglobin 15.1, white count 10.0, BUN of 31, creatinine 1.28. DIAGNOSTIC IMPRESSION AND PLAN: Patient with acute COVID-19 infection. This patient is currently on dexamethasone, Lovenox, zinc and ascorbic acid along with respiratory support, to continue and monitor clinical course closely. MMODL / IJN: [id number] /
[2021-03-10 07:17] LABS: C Reactive Protein 21.2 mg/L (<10.0)
[2021-03-10] MEDS: CHOLECALCIFEROL 25 MCG (1000 IU) TABLET PO SCH (08:25)
[2021-03-10] MEDS: ENOXAPARIN 40 MG/0.4 ML SYRINGE SQ SCH (08:26)
[2021-03-10] MEDS: ASCORBIC ACID 500 MG TAB PO SCH ×2 (08:26→21:28)
[2021-03-10] MEDS: atenoloL 25 MG TAB PO SCH (08:26)
[2021-03-10] MEDS: amLODIPine 5 MG TAB PO SCH (08:26)
[2021-03-10] MEDS: DEXAMETHASONE SOD PHOSPHATE 10 MG/ML 1 ML VIAL IV SCH (08:26)
[2021-03-10] MEDS: ZINC SULFATE 220 MG CAP PO SCH (08:27)
--- NOTE | 2021-03-10 09:15 | XR ---
EXAMINATION TYPE: XR chest 1V portable DATE OF EXAM: 03/10/2021 COMPARISON: 03/06/2021 HISTORY: Cough TECHNIQUE: Single frontal view of the chest is obtained. FINDINGS: Bilateral patchy infiltrate stable. No pneumothorax. Heart size stable. Tiny effusions not excluded. Osseous structures stable. IMPRESSION: Patchy bilateral infiltrate stable
[2021-03-10] MEDS: SYMBICORT 160-4.5 MCG INHALER INHALATION SCH ×2 (09:41→18:29)
--- NOTE | 2021-03-10 13:21 | P.PN ---
Subjective Progress Note Date: 03/10/21 50-year-old -[place] male patient with past nuchal history of hypertension, and hypertensive nephrosclerosis and CTD stage II at baseline, lifetime nonsmoker who presented to the emergency department on 03/06/2021 with symptoms of worsening shortness of breath and coughing. His symptoms started over 10 days ago, and began with loss of taste, patient states the food was tasting funny, gradually he started coughing, and developing worsening shortness of breath. [facility] on . He was in the emergency department on 03/03/2021 complaining of trouble catching his breath especially with activity. Patient does have positive coronavirus exposure with sick contacts. Does report some chest tightness. Patient did not require supplemental oxygen at that time, his chest x-ray was showing bilateral pneumonia. Patient was cleared for discharge home where his breathing continued to worsen she returned for reevaluation. His O2 saturations are now down to 85% and patient was placed on supplemental oxygen, still has the cough, and chest tightness, his chest x-ray showed worsening bilateral infiltrates. EKG showed normal sinus rhythm with T-wave inversion in the lead 3 and aVF. Lab work showed the lymphopenia with lymphocyte count of 0.7, the rest of the CBC was within normal limits, d-dimer was 0.39, sodium was 134, potassium is 3.8, chloride is 92, BUN is 25, creatinine is 1.3, LDH is 1041, CRP is 83.8, pro calcitonin level is negative at 0.15, patient was started on Decadron, prophylactic anticoagulation form of Lovenox, and vitamins. He is outside the window for Remdesivir On 03/09/2021 patient seen in follow-up on medical floor, he is cefepime chair, he is on 4 L of oxygen pulse ox is between 90-96%, lung sounds are diminished, no wheezing, no crackles auscultated on today's exam, no complaint of chest pain, occasional cough. Patient continues on the Decadron 6 mg daily, prophylactic Lovenox, he is on Symbicort, vitamins. He was outside the window for Remdesivir. His inflammatory markers are improving, LDH is down to 855, CRP is 46.5, his pro calcitonin level was negative. No worsening dyspnea, nausea vomiting or diarrhea although his appetite remains poor. He does state however that he is usually not a big eater, he is vegetarian, and intermittent faster. 03/10/2021 the patient is on2 liters oxygen. He was taken off the oxygen earlier today. Otherwise doing well on Decadron. He is on 60 mg a day. His upper flexible dose of Lovenox. His LDH level was 419 with a CRP of 21. Electrolytes are all within normal limits. Creatinine is at 1.2. D-dimer is at 0.29. Clinically, he is improving. The chest x-ray from today still showing bilateral pulmonary infiltrates associated with COVID -related pneumonia. Objective - Vital Signs Vital signs: Vital Signs Temp 98 F 03/10/21 10:00 Pulse 61 03/10/21 10:00 Resp 19 03/10/21 10:00 BP 129/84 03/10/21 10:00 Pulse Ox 93 L 03/10/21 10:00 Intake & Output 03/09/21 03/10/21 03/10/21 18:59 06:59 18:59 Intake Total 1050 Output Total 400 Balance 650 Intake: Oral 1050 Output: Urine 400 Other: # Voids 3 2 - Exam GENERAL EXAM: Alert, very pleasant, 50-year-old -[place] male, on 2L of oxygen pulse ox of 90% omfortable in no apparent distress. HEAD: Normocephalic/atraumatic. EYES: Normal reaction of pupils, equal size. Conjunctiva pink, sclera white. NOSE: Clear with pink turbinates. THROAT: No erythema or exudates. NECK: No masses, no JVD, no thyroid enlargement, no adenopathy. CHEST: No chest wall deformity. Symmetrical expansion. LUNGS: Equal air entry with bilateral crackles CVS: Regular rate and rhythm, normal S1 and S2, no gallops, no murmurs, no rubs ABDOMEN: Soft, nontender. No hepatosplenomegaly, normal bowel sounds, no guarding or rigidity. EXTREMITIES: No clubbing, no edema, no cyanosis, 2+ pulses and upper and lower extremities. MUSCULOSKELETAL: Muscle strength and tone normal. SPINE: No scoliosis or deformity SKIN: No rashes CENTRAL NERVOUS SYSTEM: Alert and oriented -3. No focal deficits, tone is nor mal in all 4 extremities. PSYCHIATRIC: Alert and oriented -3. Appropriate affect. Intact judgment and insight. - Labs CBC & Chem 7: 03/08/21 09:59 03/08/21 09:59 Labs: Abnormal Lab Results - Last 24 Hours (Table) 03/10/21 Range/Units 05:33 Lactate Dehydrogenase 719 H (313-618) U/L C-Reactive Protein 21.2 H (<10.0) mg/L Assessment and Plan Plan: #1. Acute hypoxic respiratory failure related to acute COVID 19 pneumonia with onset of symptoms over 10 days ago, outside of the window for Remdesivir, currently on 2 L of oxygen by nasal cannula, clinically improving #2. Dyspnea, hypoxia, cough, loss of appetite, loss of taste related to the above, #3. History of hypertension #4. Hypertensive nephrosclerosis and CKG stage II at baseline #5. Acute kidney injury related to ATN, improved with IV hydration #6. Mild hyponatremia related to poor oral intake and hypovolemia improved with IV hydration Plan: Continue current medical treatment, continue Decadron, prophylactic Lovenox, no worsening dyspnea, wean FiO2 to maintain O2 saturation between 89-90% as long as the patient is asymptomatic, no worsening dyspnea, avoiding oral intake, we'll obtain follow-up chest x-ray is showing stable bilateral pulmonary infiltrates. Inflammatory markers of nonelevated. Check the patient's pulse ox on room air and see there is any possibility of further oxygen wean. Possible discharge within next 24-48 hours. Pulmonary critical care services we'll sign off.
--- NOTE | 2021-03-10 19:33 | PN ---
PROGRESS NOTE DATE OF SERVICE: 03/10/2021 REASON FOR FOLLOWUP: COVID-19 infection. INTERVAL HISTORY: Patient is currently afebrile. The patient is breathing more comfortably. He is on room air, saturating 90%. The patient denies having any chest pain or cough. No nausea, no vomiting, no abdominal pain or diarrhea. PHYSICAL EXAMINATION: Blood pressure 160/83, pulse of 53, temperature 98.1. He is 90% on room air. General description is a middle-aged male lying in bed in no distress. RESPIRATORY SYSTEM: Unlabored breathing with decreased intensity of breath sounds. No wheeze. HEART: S1, S2. Regular rate and rhythm. ABDOMEN: Soft. No tenderness. LAB DATA: D-dimer was 0.29. LDH jumped to 719 with CRP at 21.2. DIAGNOSTIC IMPRESSION AND PLAN: Patient with acute COVID-19 infection in this patient who has shown overall clinical improvement. Currently on dexamethasone, Lovenox, zinc, ascorbic acid. Monitor his clinical course closely. Continue with supportive care. MMODL / IJN: [id number] /
[2021-03-11] MEDS: SYMBICORT 160-4.5 MCG INHALER INHALATION SCH (07:11)
[2021-03-11] MEDS: DEXAMETHASONE SOD PHOSPHATE 10 MG/ML 1 ML VIAL IV SCH (09:03)
[2021-03-11] MEDS: ENOXAPARIN 40 MG/0.4 ML SYRINGE SQ SCH (09:04)
[2021-03-11] MEDS: amLODIPine 5 MG TAB PO SCH (09:04)
[2021-03-11] MEDS: CHOLECALCIFEROL 25 MCG (1000 IU) TABLET PO SCH (09:04)
[2021-03-11] MEDS: atenoloL 25 MG TAB PO SCH (09:04)
[2021-03-11] MEDS: ASCORBIC ACID 500 MG TAB PO SCH (09:04)
[2021-03-11] MEDS: ZINC SULFATE 220 MG CAP PO SCH (09:04)
[2021-03-11 10:40] VITALS: TEMP 98.6
[2021-03-11 13:41] VITALS: BP 131/78; PULSE 64; RESP 18
--- NOTE | 2021-03-11 15:42 | PN ---
PROGRESS NOTE DATE OF SERVICE: 03/11/2021 REASON FOR FOLLOWUP: COVID-19 infection. INTERVAL HISTORY: The patient is currently afebrile. The patient is feeling better. Breathing comfortably. The patient is currently on room air. Denies having any chest pain or shortness of breath. Minimal cough. No abdominal pain or diarrhea. PHYSICAL EXAMINATION: Blood pressure 131/78 with a pulse of 64, temperature 98.6. He is 95% on room air. General description is a middle-aged male lying in bed in no distress. RESPIRATORY SYSTEM: Unlabored breathing, decreased intensity of breath sounds. No wheeze. HEART: S1, S2. Regular rate and rhythm. ABDOMEN: Soft, no tenderness. LABS: D-dimer 0.29. LDH and CRP have come down. DIAGNOSTIC IMPRESSION AND PLAN: Patient with COVID-19 pneumonia in this patient with overall improvement with supportive treatment he received from Decadron, Lovenox, zinc and ascorbic acid to continue along with respiratory support and monitor clinical course closely. MMODL / IJN: [id number] /
--- NOTE | 2021-03-11 17:16 | PN ---
PROGRESS NOTE DATE OF SERVICE: 03/10/2021 This is a 50-year-old -[place] male with COVID pneumonia, acute hypoxemic respiratory distress. He is maintaining. He is up walking in his room. Oxygen saturations are 93% to 95%. Lungs are clear. CARDIOVASCULAR: S1, S2. HEMATOLOGY: Negative Homans. PSYCH: Fair mood and affect. ASSESSMENT: 1. Acute hypoxemic respiratory distress. 2. COVID-19 pneumonia. 3. COVID-19. Prognosis guarded. Continue current treatments. Follow up in the next 24 to 48 hours for discharge. MMODL / IJN: [id number] /
== END 2021-03-11 17:15 | disposition home or self-care (01) | DRG 177 ==
LOC: EC 18:49 → 4SSUR 20:55 → 1SOBS 03-07 10:56 → 4SSUR 03-08 22:43
PROVIDERS: ADMIT Family Medicine; ATTEND Family Medicine
DX: U07.1 COVID-19 (principal); J12.82 Pneumonia due to coronavirus disease 2019; J96.01 Acute respiratory failure with hypoxia; N17.0 Acute kidney failure with tubular necrosis; E87.1 Hypo-osmolality and hyponatremia; I13.10 Hypertensive heart and chronic kidney disease without heart failure, with stage 1 through stage 4 chronic kidney disease, or unspecified chronic kidney disease; N18.2 Chronic kidney disease, stage 2 (mild); D72.810 Lymphocytopenia; E86.0 Dehydration; E86.1 Hypovolemia; Z79.51 Long term (current) use of inhaled steroids; Z79.899 Other long term (current) drug therapy; Z82.3 Family history of stroke; Z83.3 Family history of diabetes mellitus
CPT/HCPCS: 36415; 71045; 80048; 80053; 83605; 83615; 83735; 84145; 85025; 85379; 85610; 85730; 86140; 87635; 93005; 94640; 99285

== ENCOUNTER → 2021-08-12 | Outpatient (CLI) | payer OTHER ==
[2021-08-13 15:56] LABS: African American GFR (CKD) 73.2 (60.0-200.0); Anion Gap 17.1 mmol/L (4.00-12.00); Carbon Dioxide 21.9 mmol/L (21.6-31.8); Non-African American GFR(CKD) 63.2 (60.0-200.0); Potassium 3.8 mmol/L (3.5-5.5)
== END | disposition home or self-care (01) ==
LOC: LABWHC1 13:37
PROVIDERS: ATTEND Family Medicine
DX: I10 Essential (primary) hypertension (principal)
CPT/HCPCS: 36415; 80051; 82565; 84520

== ENCOUNTER → 2021-11-10 | Outpatient (CLI) | payer OTHER ==
[2021-11-10 18:42] LABS: Basophils # (A) 0.04 X 10*3/uL (0.00-0.10); Basophils % (A) 0.5 %; Eosinophils # (A) 0.13 X 10*3/uL (0.04-0.35); Eosinophils % (A) 1.7 %; HGB 15.1 g/dL (13.0-17.0); Lymphocytes # (A) 2.83 X 10*3/uL (0.90-5.00); Lymphocytes % (A) 37.8 %; MCH 27.4 pg (27.0-32.0); MCHC 32.8 g/dL (32.0-37.0); MCV 83.3 fL (80.0-97.0); Mean Platelet Volume 8.5 fL (9.5-12.2); Monocytes % (A) 6.7 %; Neutrophils # (A) 3.95 X 10*3/uL (1.80-7.70); Neutrophils % (A) 52.9 %; Platelet Count 491 X 10*3/uL (140-440); RBC 5.52 X 10*6/uL (4.40-5.60); RDW 14.7 % (11.5-14.5); WBC 7.48 X 10*3/uL (4.50-10.00)
[2021-11-11 05:12] LABS: BUN/Creat Ratio 10.71 Ratio (12.00-20.00); Chol/HDL Ratio 5.32 Ratio; Globulin 3.2 g/dL (1.6-3.3); LDL Cholesterol,Calculated 146.7 mg/dL (0.0-131.0)
[2021-11-11 05:13] LABS: ALT 24 U/L (10-49); AST 22 U/L (14-35); African American GFR (CKD) 75.3 (60.0-200.0); Albumin 4.5 g/dL (3.8-4.9); Albumin/Globulin Ratio 1.42 (1.60-3.17); Alkaline Phosphatase 71 U/L (41-126); Blood Urea Nitrogen 13.6 mg/dL (9.0-27.0); Calcium 10.1 mg/dL (8.7-10.3); Chloride 100 mmol/L (96-109); Glucose 94 mg/dL (70-110); Potassium 3.6 mmol/L (3.5-5.5); Sodium 142 mmol/L (135-145); Total Protein 7.7 g/dL (6.2-8.2)
== END | disposition home or self-care (01) ==
LOC: LABWHC1 11:02
PROVIDERS: ATTEND Family Medicine
DX: Z00.00 Encounter for general adult medical examination without abnormal findings (principal); I10 Essential (primary) hypertension
CPT/HCPCS: 36415; 80053; 80061; 83036; 84153; 85025

== ENCOUNTER → 2022-05-15 | Outpatient (CLI) | payer OTHER ==
[2022-05-15 15:01] LABS: African American GFR (CKD) 66.9 (60.0-200.0); Blood Urea Nitrogen 11.4 mg/dL (9.0-27.0); Carbon Dioxide 24.8 mmol/L (20.0-27.5); Chloride 102 mmol/L (96-109); Chol/HDL Ratio 5.26 Ratio; LDL Cholesterol,Calculated 144.6 mg/dL (0.0-131.0); Non-African American GFR(CKD) 57.8 (60.0-200.0); Potassium 3.4 mmol/L (3.5-5.5); Sodium 140 mmol/L (135-145)
[2022-05-16 01:05] LABS: Microalbumin Creatinine Ratio <30 mg/g Creat (0-30)
== END | disposition home or self-care (01) ==
LOC: LABWHC1 08:54
PROVIDERS: ATTEND Family Medicine
DX: Z00.00 Encounter for general adult medical examination without abnormal findings (principal); I10 Essential (primary) hypertension; Z83.3 Family history of diabetes mellitus
CPT/HCPCS: 36415; 80051; 80061; 82043; 82565; 82570; 83036; 84520

== ENCOUNTER 2022-10-01 08:56 | Day surgery (SDC) | payer OTHER ==
[2022-09-29 11:01] VITALS: BMI 34.4
[~2022-10-01 08:56] MED LIST: LACTATED RINGERS 1,000 ML IV SCH
[2022-10-01 09:14] VITALS: RESP 16; TEMP 97.8
[2022-10-01] MEDS ORDERED: LACTATED RINGERS 1,000 ML IV ONE (09:20)
[2022-10-01] MEDS ORDERED: GLYCOPYRROLATE 0.2 MG/ML 2 ML VIAL ONE (10:28)
[2022-10-01] MEDS ORDERED: LIDOCAINE 2% INJ 20 MG/ML (2 ML VIAL) ONE (10:28)
[2022-10-01] MEDS ORDERED: PROPOFOL 10 MG/ML 20 ML VIAL IV ONE (10:28)
--- NOTE | 2022-10-01 10:32 | P.GSHP ---
History of Present Illness H&P Date: 10/01/22 Chief Complaint: Screening colonoscopy This is a 52-year-old male who presents today for screening colonoscopy. Patient denies a significant GI complaints. Past Medical History Past Medical History: Hypertension, Renal Disease Additional Past Medical History / Comment(s): Chronic Kidney Disease Stage 2. History of Any Multi-Drug Resistant Organisms: None Reported Past Surgical History: No Surgical Hx Reported Past Anesthesia/Blood Transfusion Reactions: No Reported Reaction, Motion Sickness Additional Past Anesthesia/Blood Transfusion Reaction / Comment(s): Has never had anesthesia. Past Psychological History: No Psychological Hx Reported Smoking Status: Never smoker Past Alcohol Use History: None Reported Past Drug Use History: None Reported - Past Family History Father Family Medical History: Cancer, Renal Disease Mother Family Medical History: CVA/TIA, Diabetes Mellitus Additional Family Medical History / Comment(s): CVAs Medications and Allergies Home Medications Medication Instructions Recorded Confirmed Type amLODIPine [Norvasc] 5 mg PO QAM 03/06/21 10/01/22 History atenoloL 25 mg PO QAM 03/06/21 10/01/22 History hydroCHLOROthiazide 50 mg PO QAM 03/06/21 10/01/22 History Allergies Allergy/AdvReac Type Severity Reaction Status Date / Time No Known Allergies Allergy Verified 10/01/22 09:10 Surgical - Exam Vital Signs Temp Pulse Resp BP Pulse Ox 97.8 F 63 16 135/80 96 10/01/22 09:10 10/01/22 09:10 10/01/22 09:10 10/01/22 09:10 10/01/22 09:10 - General well developed, well nourished, no distress - Eyes PERRL - ENT normal pinna - Neck no masses - Respiratory normal expansion - Cardiovascular Rhythm: regular - Abdomen Abdomen: soft, non tender Assessment and Plan Assessment: We will perform screening colonoscopy
--- NOTE | 2022-10-01 10:41 | P.OP ---
Date of Procedure: 10/01/22 Preoperative Diagnosis: Screening colonoscopy Postoperative Diagnosis: Normal colonoscopy Procedure(s) Performed: Colonoscopy Anesthesia: MAC Surgeon: Jayjay Rodriguez Pathology: none sent Condition: stable Disposition: PACU Description of Procedure: PROCEDURE: The patient was placed on the endoscopy table in the lateral position. Digital rectal examination was performed which revealed no abnormalities. The prostate was symmetrical without nodules. Flexible colonoscope was then placed in the patient's anus and passed throughout the entire colon. The ileocecal valve was visualized. The cecum, ascending, transverse, descending and sigmoid colon were normal. The rectum was normal as well. There were no masses, polyps or diverticula noted in the entire colon. SUMMARY OF FINDINGS: Normal colonoscopy.
[2022-10-01 11:13] VITALS: BP 116/80; PULSE 66
== END 2022-10-01 12:06 | disposition home or self-care (01) ==
LOC: ORWHC2ENDO 08:56
PROVIDERS: ATTEND Surgery
DX: Z12.11 Encounter for screening for malignant neoplasm of colon (principal); I12.9 Hypertensive chronic kidney disease with stage 1 through stage 4 chronic kidney disease, or unspecified chronic kidney disease; N18.2 Chronic kidney disease, stage 2 (mild); Z83.3 Family history of diabetes mellitus
CPT/HCPCS: J2704; J2001; G0121

== ENCOUNTER → 2022-12-02 | Outpatient (CLI) | payer OTHER ==
[2022-12-02 19:35] LABS: Chol/HDL Ratio 5.08 Ratio; LDL Cholesterol,Calculated 189.8 mg/dL (0.0-131.0)
[2022-12-02 19:42] LABS: ALT 28 U/L (10-49); AST 40 U/L (14-35); African American GFR (CKD) 56.6 (60.0-200.0); Albumin 4.6 g/dL (3.8-4.9); Albumin/Globulin Ratio 1.31 (1.60-3.17); Alkaline Phosphatase 75 U/L (41-126); BUN/Creat Ratio 9.63 Ratio (12.00-20.00); Blood Urea Nitrogen 15.4 mg/dL (9.0-27.0); Carbon Dioxide 25.8 mmol/L (20.0-27.5); Chloride 96 mmol/L (96-109); Globulin 3.5 g/dL (1.6-3.3); Glucose 99 mg/dL (70-110); Non-African American GFR(CKD) 48.8 (60.0-200.0); Potassium 4.4 mmol/L (3.5-5.5); Sodium 139 mmol/L (135-145); Total Protein 8.1 g/dL (6.2-8.2)
[2022-12-02 21:19] LABS: Basophils # (A) 0.05 X 10*3/uL (0.00-0.10); Basophils % (A) 0.5 %; Eosinophils # (A) 0.08 X 10*3/uL (0.04-0.35); Eosinophils % (A) 0.8 %; HGB 16.2 g/dL (13.0-17.0); Immature Grans, Automated 0.3 %; Lymphocytes % (A) 20.3 %; MCH 27.5 pg (27.0-32.0); MCHC 32.4 g/dL (32.0-37.0); MCV 84.7 fL (80.0-97.0); Monocytes # (A) 0.85 X 10*3/uL (0.20-1.00); Monocytes % (A) 8.6 %; NRBC Per 100 WBC 0 /100 WBCS (0.0-0.0); Neutrophils # (A) 6.83 X 10*3/uL (1.80-7.70); Neutrophils % (A) 69.5 %; Platelet Count 378 X 10*3/uL (140-440); RDW 14.7 % (11.5-14.5); WBC 9.84 X 10*3/uL (4.50-10.00)
[2022-12-02 21:20] LABS: RBC Morphology NORMAL
== END | disposition home or self-care (01) ==
LOC: LABWHC1 10:44
PROVIDERS: ATTEND Family Medicine
DX: Z00.00 Encounter for general adult medical examination without abnormal findings (principal); I10 Essential (primary) hypertension
CPT/HCPCS: 36415; 80053; 80061; 83036; 84443; 85025

== ENCOUNTER → 2023-03-02 | Outpatient (CLI) | payer OTHER ==
[2023-03-02 15:31] LABS: Basophils # (A) 0.04 X 10*3/uL (0.00-0.10); Basophils % (A) 0.6 %; Eosinophils # (A) 0.07 X 10*3/uL (0.04-0.35); HCT 51.2 % (39.6-50.0); HGB 16.1 g/dL (13.0-17.0); Immature Grans, Automated 0.1 %; Lymphocytes # (A) 2.34 X 10*3/uL (0.90-5.00); Lymphocytes % (A) 34.3 %; MCH 26.3 pg (27.0-32.0); MCHC 31.4 g/dL (32.0-37.0); MCV 83.5 fL (80.0-97.0); Mean Platelet Volume 8.9 fL (9.5-12.2); Monocytes # (A) 0.55 X 10*3/uL (0.20-1.00); Monocytes % (A) 8.1 %; NRBC Per 100 WBC 0 /100 WBCS (0.0-0.0); Neutrophils # (A) 3.82 X 10*3/uL (1.80-7.70); Neutrophils % (A) 55.9 %; Platelet Count 497 X 10*3/uL (140-440); RBC 6.13 X 10*6/uL (4.40-5.60); WBC 6.83 X 10*3/uL (4.50-10.00)
[2023-03-02 18:11] LABS: ALT 24 U/L (10-49); AST 26 U/L (14-35); African American GFR (CKD) 52.6 (60.0-200.0); Albumin 4.7 g/dL (3.8-4.9); Albumin/Globulin Ratio 1.38 (1.60-3.17); Alkaline Phosphatase 74 U/L (41-126); BUN/Creat Ratio 9.47 Ratio (12.00-20.00); Blood Urea Nitrogen 16.1 mg/dL (9.0-27.0); Calcium 10.5 mg/dL (8.7-10.3); Carbon Dioxide 25.7 mmol/L (20.0-27.5); Chloride 99 mmol/L (96-109); Chol/HDL Ratio 5.21 Ratio; Globulin 3.4 g/dL (1.6-3.3); Glucose 97 mg/dL (70-110); LDL Cholesterol,Calculated 153.9 mg/dL (0.0-131.0); Non-African American GFR(CKD) 45.4 (60.0-200.0); Potassium 4.1 mmol/L (3.5-5.5); Sodium 139 mmol/L (135-145); Total Protein 8.1 g/dL (6.2-8.2); VLDL Calculation 19.78 mg/dL (5.00-40.00)
== END | disposition home or self-care (01) ==
LOC: LABWHC1 08:14
PROVIDERS: ATTEND Family Medicine
DX: I10 Essential (primary) hypertension (principal)
CPT/HCPCS: 36415; 80053; 80061; 82043; 82570; 83036; 84443; 85025

== ENCOUNTER → 2023-06-04 | Outpatient (CLI) | payer OTHER ==
[2023-06-04 16:29] LABS: Basophils # (A) 0.04 X 10*3/uL (0.00-0.10); Basophils % (A) 0.5 %; Eosinophils # (A) 0.06 X 10*3/uL (0.04-0.35); Eosinophils % (A) 0.7 %; HCT 50.5 % (39.6-50.0); HGB 16.2 d/dL (12.0-15.0); Lymphocytes # (A) 2.62 X 10*3/uL (0.90-5.00); Lymphocytes % (A) 31.9 %; MCH 26.2 pg (27.0-32.0); MCHC 32.1 d/dL (32.0-37.0); MCV 81.6 FL (80.0-97.0); Mean Platelet Volume 8.5 FL (9.5-12.2); Monocytes % (A) 7.3 %; NRBC Per 100 WBC 0 X 10*3/uL (0.00-0.01); Neutrophils # (A) 4.88 X 10*3/uL (1.80-7.70); Neutrophils % (A) 59.4 %; Platelet Count 471 X 10*3/uL (140-440); RBC 6.19 X 10*6/uL (4.40-5.60); RDW 15.2 % (11.5-14.5); WBC 8.22 X 10*3/uL (4.50-10.00)
[2023-06-04 16:37] LABS: ALT 21 U/L (10-49); AST 18 U/L (14-35); Albumin 4.7 d/dL (3.8-4.9); Albumin/Globulin Ratio 1.42 Ratio (1.60-3.17); Alkaline Phosphatase 69 U/L (41-126); BUN/Creat Ratio 13.38 Ratio (12.00-20.00); Blood Urea Nitrogen 21.4 mg/dL (9.0-27.0); Calcium 10.3 mg/dL (8.7-10.3); Carbon Dioxide 28.8 mmol/L (21.6-31.8); Chloride 100 mmol/L (96-109); Globulin 3.3 d/dL (1.6-3.3); Glucose 95 mg/dL (70-110); LDL Cholesterol,Calculated 150.2 mg/dL (0.0-131.0); Potassium 4.4 mmol/L (3.5-5.5); Sodium 141 mmol/L (135-145); Total Bilirubin 0.4 mg/dL (0.3-1.2)
== END | disposition home or self-care (01) ==
LOC: LABWHC1 08:44
PROVIDERS: ATTEND Family Medicine
DX: Z00.00 Encounter for general adult medical examination without abnormal findings (principal); Z79.899 Other long term (current) drug therapy
CPT/HCPCS: 36415; 80053; 80061; 83036; 84153; 84443; 85025

== ENCOUNTER → 2023-10-07 | Outpatient (CLI) | payer OTHER ==
[2023-10-07 16:25] LABS: Chol/HDL Ratio 4.54 Ratio
[2023-10-07 16:38] LABS: ALT 30 U/L (10-49); AST 29 U/L (14-35); Albumin 4.5 g/dL (3.8-4.9); Albumin/Globulin Ratio 1.36 Ratio (1.60-3.17); Alkaline Phosphatase 76 U/L (41-126); BUN/Creat Ratio 8.47 Ratio (12.00-20.00); Blood Urea Nitrogen 12.7 mg/dL (9.0-27.0); Calcium 10.4 mg/dL (8.7-10.3); Carbon Dioxide 28.9 mmol/L (21.6-31.8); Chloride 102 mmol/L (96-109); Globulin 3.3 g/dL (1.6-3.3); Glucose 103 mg/dL (70-110); Sodium 143 mmol/L (135-145); Total Bilirubin 0.6 mg/dL (0.3-1.2); Total Protein 7.8 g/dL (6.2-8.2)
== END | disposition home or self-care (01) ==
LOC: LABWHC1 08:07
PROVIDERS: ATTEND Family Medicine
DX: I10 Essential (primary) hypertension (principal); Z79.899 Other long term (current) drug therapy
CPT/HCPCS: 36415; 80053; 80061; 83036

== ENCOUNTER → 2024-02-08 | Outpatient (CLI) | payer OTHER ==
[2024-02-08 16:34] LABS: Basophils # (A) 0.04 X 10*3/uL (0.00-0.10); Basophils % (A) 0.5 %; Eosinophils # (A) 0.32 X 10*3/uL (0.04-0.35); Eosinophils % (A) 4.3 %; HCT 48.1 % (39.6-50.0); HGB 15.5 g/dL (13.0-17.0); Lymphocytes # (A) 2.91 X 10*3/uL (0.90-5.00); Lymphocytes % (A) 39.3 %; MCHC 32.2 g/dL (32.0-37.0); MCV 83.7 FL (80.0-97.0); Mean Platelet Volume 9.1 FL (9.5-12.2); Monocytes # (A) 0.53 X 10*3/uL (0.20-1.00); Monocytes % (A) 7.2 %; NRBC Per 100 WBC 0 X 10*3/uL (0.00-0.01); Neutrophils % (A) 48.6 %; Platelet Count 396 X 10*3/uL (140-440); RBC 5.75 X 10*6/uL (4.40-5.60); RDW 14.5 % (11.5-14.5); WBC 7.41 X 10*3/uL (4.50-10.00)
[2024-02-08 16:41] LABS: ALT 31 U/L (10-49); AST 26 U/L (14-35); Albumin 4.3 g/dL (3.8-4.9); Albumin/Globulin Ratio 1.34 Ratio (1.60-3.17); Alkaline Phosphatase 75 U/L (41-126); BUN/Creat Ratio 10.77 Ratio (12.00-20.00); Calcium 9.7 mg/dL (8.7-10.3); Carbon Dioxide 29.3 mmol/L (21.6-31.8); Chloride 101 mmol/L (96-109); Chol/HDL Ratio 4.47 Ratio; Globulin 3.2 g/dL (1.6-3.3); Glucose 102 mg/dL (70-110); LDL Cholesterol,Calculated 143.9 mg/dL (0.0-131.0); Potassium 3.7 mmol/L (3.5-5.5); Prostate Specific Antigen 1.64 ng/mL (0.000-3.500); Sodium 142 mmol/L (135-145); Total Bilirubin 0.4 mg/dL (0.3-1.2); Total Protein 7.5 g/dL (6.2-8.2)
== END | disposition home or self-care (01) ==
LOC: LABWHC1 08:32
PROVIDERS: ATTEND Family Medicine
DX: I10 Essential (primary) hypertension (principal); Z79.899 Other long term (current) drug therapy
CPT/HCPCS: 36415; 80053; 80061; 83036; 84153; 85025

== ENCOUNTER → 2024-06-22 | Outpatient (CLI) | payer OTHER ==
[2024-06-22 16:48] LABS: Basophils # (A) 0.03 X 10*3/uL (0.00-0.10); Basophils % (A) 0.4 %; Eosinophils % (A) 2.7 %; HCT 48.5 % (39.6-50.0); HGB 15.8 g/dL (13.0-17.0); Lymphocytes # (A) 2.36 X 10*3/uL (0.90-5.00); Lymphocytes % (A) 31.9 %; MCH 27.1 pg (27.0-32.0); MCHC 32.6 g/dL (32.0-37.0); MCV 83.3 FL (80.0-97.0); Mean Platelet Volume 8.8 FL (9.5-12.2); Monocytes # (A) 0.63 X 10*3/uL (0.20-1.00); Monocytes % (A) 8.5 %; NRBC Per 100 WBC 0 X 10*3/uL (0.00-0.01); Neutrophils # (A) 4.17 X 10*3/uL (1.80-7.70); Neutrophils % (A) 56.4 %; Platelet Count 469 X 10*3/uL (140-440); RBC 5.82 X 10*6/uL (4.40-5.60); RDW 14.5 % (11.5-14.5)
[2024-06-22 16:58] LABS: ALT 24 U/L (10-49); AST 23 U/L (14-35); Albumin 4.5 g/dL (3.8-4.9); Albumin/Globulin Ratio 1.36 Ratio (1.60-3.17); Alkaline Phosphatase 69 U/L (41-126); Blood Urea Nitrogen 18.2 mg/dL (9.0-27.0); Carbon Dioxide 27.2 mmol/L (21.6-31.8); Chloride 99 mmol/L (96-109); Globulin 3.3 g/dL (1.6-3.3); Glucose 102 mg/dL (70-110); LDL Cholesterol,Calculated 160.9 mg/dL (0.0-131.0); Potassium 3.8 mmol/L (3.5-5.5); Prostate Specific Antigen 1.79 ng/mL (0.000-3.500); Sodium 140 mmol/L (135-145); Total Bilirubin 0.5 mg/dL (0.3-1.2); Total Protein 7.8 g/dL (6.2-8.2)
== END | disposition home or self-care (01) ==
LOC: LABWHC1 08:18
PROVIDERS: ATTEND Family Medicine
DX: Z00.00 Encounter for general adult medical examination without abnormal findings (principal); I10 Essential (primary) hypertension; E11.9 Type 2 diabetes mellitus without complications; E78.49 Other hyperlipidemia; Z79.899 Other long term (current) drug therapy
CPT/HCPCS: 36415; 80053; 80061; 82306; 83036; 84153; 85025

== ENCOUNTER → 2024-11-15 | Outpatient (CLI) | payer OTHER ==
[2024-11-15 18:34] LABS: HCT 49.6 % (39.6-50.0); HGB 15.6 g/dL (13.0-17.0); MCH 26.2 pg (27.0-32.0); MCHC 31.5 g/dL (32.0-37.0); MCV 83.2 FL (80.0-97.0); Mean Platelet Volume 8.7 FL (9.5-12.2); NRBC Per 100 WBC 0 X 10*3/uL (0.00-0.01); Platelet Count 538 X 10*3/uL (140-440); RBC 5.96 X 10*6/uL (4.40-5.60); RDW 14.3 % (11.5-14.5); WBC 8.43 X 10*3/uL (4.50-10.00)
[2024-11-15 19:57] LABS: Blood Urea Nitrogen 15.2 mg/dL (9.0-27.0); Carbon Dioxide 29.5 mmol/L (21.6-31.8); Chloride 100 mmol/L (96-109); Potassium 3.9 mmol/L (3.5-5.5); Sodium 141 mmol/L (135-145)
[2024-11-15 20:40] LABS: Microalbumin Creatinine Ratio <4 mg/g Cr (0-30)
== END | disposition home or self-care (01) ==
LOC: LABWHC1 14:30
PROVIDERS: ATTEND Family Medicine
DX: I10 Essential (primary) hypertension (principal); E11.9 Type 2 diabetes mellitus without complications; E78.49 Other hyperlipidemia
CPT/HCPCS: 36415; 80051; 82043; 82565; 82570; 83036; 84520; 85027

== ENCOUNTER → 2025-05-15 | Outpatient (CLI) | payer OTHER ==
[2025-05-15 15:22] LABS: Carbon Dioxide 26.4 mmol/L (21.6-31.8); Chloride 99 mmol/L (96-109); Potassium 3.2 mmol/L (3.5-5.5); Sodium 138 mmol/L (135-145)
== END | disposition home or self-care (01) ==
LOC: LABWHC1 09:20
PROVIDERS: ATTEND Family Medicine
DX: E11.9 Type 2 diabetes mellitus without complications (principal); Z79.899 Other long term (current) drug therapy
CPT/HCPCS: 36415; 80051; 82043; 82565; 82570; 84520